=== PATIENT | female | born 1955 | race Caucasian/White ===

== ENCOUNTER 2019-08-23 09:02 | Day surgery (SDC) | payer OTHER ==
[~2019-08-23] VITALS: Ht 167.6 cm; Wt 84.8 kg
[2019-08-23] MEDS ORDERED: fentaNYL 0.05 MG/ML VIAL ONE (12:02)
[2019-08-23] MEDS ORDERED: MIDAZOLAM 2 MG/2 ML VIAL ONE (12:02)
== END 2019-08-23 13:25 | disposition home or self-care (01) ==
LOC: MDS 09:02 → MMU 10:16 → MDS 13:25
PROVIDERS: ATTEND Internal Medicine Gastroenterology
DX: R13.10 Dysphagia, unspecified (principal); K44.9 Diaphragmatic hernia without obstruction or gangrene; E78.00 Pure hypercholesterolemia, unspecified; R07.9 Chest pain, unspecified
CPT/HCPCS: 43235; J2250; J3010